=== PATIENT | male | born 1955 | race Caucasian/White ===

== ENCOUNTER → 2023-04-14 | Outpatient (CLI) | payer MEDICARE, OTHER, SELFPAY ==
[2023-04-14 12:33] LABS: D-Dimer Quantitative (DVT/PE) < 0.27 FEU/ug/m (0.27-0.49)
== END | disposition home or self-care (01) ==
LOC: LABSPEC 12:15
PROVIDERS: PCP Family Medicine; Referring Provider Family Medicine; Visit Provider Family Medicine
DX: T45.2X1S Poisoning by vitamins, accidental (unintentional), sequela (principal); R07.89 Other chest pain; R06.02 Shortness of breath
CPT/HCPCS: 85379